=== PATIENT | female | born 1995 | race Caucasian/White ===

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

== ENCOUNTER 2018-12-17 13:53 | Emergency (ER) | payer SELFPAY ==
[2018-12-17 14:36] VITALS: BMI 25.7
[2018-12-17 14:39] VITALS: BP 144/85; PULSE 88; RESP 19; TEMP 97.7; O2SAT 100
--- NOTE | 2018-12-17 15:04 | C.PDOC ---
History Of Present Illness 23-year-old female presents to the ED for evaluation of pain and tenderness to her sun-exposed areas after returning from a trip to [place]. Patient states she did not use sunblock while in [place] because she "forgot it." Patient denies fever, chills. Time Seen by Provider: 12/17/18 15:00 Chief Complaint (Nursing): Abnormal Skin Integrity History Per: Patient History/Exam Limitations: no limitations Onset/Duration Of Symptoms: Hrs Current Symptoms Are (Timing): Still Present Quality Of Symptoms: Painful Past Medical History Reviewed: Historical Data, Nursing Documentation, Vital Signs Vital Signs: Last Vital Signs Temp 97.7 F 12/17/18 14:36 Pulse 88 12/17/18 14:36 Resp 19 12/17/18 14:36 BP 144/85 12/17/18 14:36 Pulse Ox 100 12/17/18 14:36 - Medical History PMH: No Chronic Diseases Surgical History: No Surg Hx - [facility] Procedures LINEAR REP LID LACER (11/15/13) Family History: States: Unknown Family Hx - Social History Hx Tobacco Use: No Hx Alcohol Use: No Hx Substance Use: No - Immunization History Hx Tetanus Toxoid Vaccination: No Hx Influenza Vaccination: No Hx Pneumococcal Vaccination: No Review Of Systems Constitutional: Negative for: Fever, Chills Skin: Positive for: Other (pain and tenderness s/p sun exposure ) Physical Exam - Physical Exam Appears: Non-toxic, No Acute Distress Skin: Warm, Dry, Other (moderate erythema worse to chest, forearms and thighs ) Oral Mucosa: Moist Neck: Supple Extremity: Normal ROM Neurological/Psych: Oriented x3, Normal Speech, Normal Cognition ED Course And Treatment O2 Sat by Pulse Oximetry: 100 (on RA) Pulse Ox Interpretation: Normal Progress Note: Tylenol PO and Motrin PO given. Medical Decision Making Medical Decision Making: sunburn no blisters NSAIDS/ice/lotions OTC Disposition Doctor Will See Patient In The: Office Counseled Patient/Family Regarding: Studies Performed, Diagnosis - Disposition Referrals: [facility] [Outside] Heather Zimmerman [facility] [place] [Outside] [facility] [Outside] Disposition: HOME/ ROUTINE Disposition Time: 15:03 Condition: GOOD Additional Instructions: cool baths motrin/Advil 400-600 mg every 6 hours as needed Remember to apply SPF whenever planning sun exposure! Instructions: Sunburn (DC) Forms: [employer] ([employer]) - Clinical Impression Clinical Impression: Sunburn - Scribe Statement The provider has reviewed the documentation as recorded by the Scribe (Tyesha Villa) Provider Attestation: All medical record entries made by the Scribe were at my direction and personally dictated by me. I have reviewed the chart and agree that the record accurately reflects my personal performance of the history, physical exam, medical decision making, and the department course for this patient. I have also personally directed, reviewed, and agree with the discharge instructions and disposition.
== END 2018-12-17 15:22 | disposition home or self-care (01) ==
LOC: C.ER 13:53
DX: L55.9 Sunburn, unspecified (principal)